=== PATIENT | male | born 1970 | race Caucasian/White ===

== ENCOUNTER → 2016-06-24 | Outpatient (CLI) | payer OTHER ==
--- NOTE | 2016-06-24 10:53 | RAD ---
Shunt Upton were orbits for MRI Indication: Pre-MRI screening. Time of exam 0948 hours. There is an opacity noted laterally projected over the mastoid air cells on the frontal view. This is lateral to the orbits and does not appear to be within the orbits. No radiopaque orbital foreign body is detected. Impression: No radiopaque orbital foreign body is detected.
--- NOTE | 2016-06-24 11:19 | RAD ---
PROCEDURE MR of the right shoulder HISTORY Right shoulder pain for 5 days. Jasper pop in anterior shoulder while lifting a heavy object. COMPARISON None TECHNIQUE Routine multiplanar sequences are obtained. FINDINGS Acromioclavicular joint is mildly degenerative. Diffuse thickening and increased signal within the rotator cuff compatible with tendinosis. Very small superficial undersurface tear of the supraspinatus tendon footprint, less than 20 percent deep and about 5 millimeters AP diameter. No large or full-thickness rotator cuff tear. Mild cystic change at the underlying tuberosity shelf. No significant subdeltoid bursal fluid. No advanced muscle atrophy. Tear of the posterosuperior labrum. No significant joint effusion. Biceps tendon thickening and increased signal proximally, compatible with tendinosis. No rupture or dislocation. No bone lesion or acute fracture. No acute soft tissue injury. IMPRESSION 1. Posterosuperior labrum tear. 2. Rotator cuff tendinosis. Very small and superficial undersurface tear of the supraspinatus tendon footprint. No full-thickness rotator cuff tear. 3. Biceps tendinosis. Electronically signed by: Kory Love MD (June 24, 2016 11:18:31)
== END | disposition home or self-care (01) ==
LOC: MRI 09:04
PROVIDERS: ATTEND Family Medicine
DX: S43.401A Unspecified sprain of right shoulder joint, initial encounter (principal); Z01.812 Encounter for preprocedural laboratory examination; X58.XXXA Exposure to other specified factors, initial encounter; Y93.89 Activity, other specified; Y92.89 Other specified places as the place of occurrence of the external cause; Y99.8 Other external cause status
CPT/HCPCS: 70250; 73221

== ENCOUNTER → 2016-09-10 | Outpatient (CLI) | payer OTHER ==
--- NOTE | 2016-09-10 15:18 | RAD ---
Left knee, 3 views, 09/10/2016: History: Knee pain and swelling No fracture or dislocation is identified. No significant arthritic change is seen. There is moderate soft tissue swelling particularly in the prepatellar region. No definite joint effusion is seen. IMPRESSION: No acute bony abnormality is detected.
== END | disposition home or self-care (01) ==
LOC: RAD 09:11
PROVIDERS: ATTEND Family Medicine
DX: M25.562 Pain in left knee (principal)
CPT/HCPCS: 73562

== ENCOUNTER → 2016-09-18 | Outpatient (CLI) | payer OTHER ==
--- NOTE | 2016-09-18 16:30 | RAD ---
MRI left knee without contrast dated 09/18/2016 3:24 PM Indication: Left knee pain and swelling for 2 weeks difficulty bending pain behind patella no known injury Comparison: No comparison is available. Technique: Routine multiplanar multisequence imaging performed. No contrast administered. Findings: Homogeneous signal throughout the visualized bone marrow. No marrow edema. Minimal tricompartmental hypertrophic change with mild thinning and surface irregularity of the articular cartilage. There is near full-thickness cartilage loss at the medial femoral trochlea/trochlear groove. Small joint effusion. No intra-articular loose body. No significant popliteal cyst. Anterior cruciate and posterior cruciate ligaments are intact. Medial and lateral collateral complexes are intact. Iliotibial band, popliteus tendon and pes anserine complex within normal limits. Quadriceps and patellar tendon are intact. Mild increased signal of the distal quadriceps tendon. There is patchy edema in the prepatellar and superficial infrapatellar soft tissues. No abnormality of the medial or lateral retinaculum. Both menisci are normal in morphology and signal. No articular surface tear or perimeniscal cyst. IMPRESSION: 1. No evidence of internal derangement. 2. 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 Near full-thickness cartilage loss at the anterior compartment. 3. Mild distal quadriceps tendinosis with nonspecific edema in the prepatellar and superficial infrapatellar soft tissues. 4. Small joint effusion. Electronically signed by: Kory Higuera MD (09/18/2016 4:27 PM) [email or web address]
== END | disposition home or self-care (01) ==
LOC: MRI 15:04
PROVIDERS: ATTEND Nurse Practitioner Gerontology
DX: S89.92XD Unspecified injury of left lower leg, subsequent encounter (principal); X58.XXXD Exposure to other specified factors, subsequent encounter; M25.461 Effusion, right knee; M17.12 Unilateral primary osteoarthritis, left knee
CPT/HCPCS: 73721

== ENCOUNTER → 2016-12-03 | Outpatient (CLI) | payer OTHER ==
--- NOTE | 2016-12-03 12:44 | RAD ---
MRI of the cervical spine without contrast 12/03/2016 CLINICAL HISTORY: Neck pain which radiates down the left arm. TECHNIQUE: Unenhanced T1-weighted, T2-weighted and inversion recovery sagittal and gradient echo and T2-weighted axial images of the cervical spine were obtained. FINDINGS: Minimal lateral curvature of the cervical spine is seen convex to the left. There is straightening of the normal cervical lordosis. Degenerative signal changes are seen involving all of the disks of the cervical spine. Degenerative signal changes are seen within the marrow surrounding these discs. No area of abnormal signal intensity is seen involving the cervical spinal cord. The C2-3 disc space is within normal limits. At the C3-4 and C4-5 disc spaces there are mild generalized disc bulges. Degenerative changes are seen involving the uncovertebral and facet joints bilaterally. A right paracentral focal disc protrusion is seen at C4-5 which measures 2 mm in AP diameter. These findings do not result in significant central spinal canal or neural foraminal stenosis. At the C5-6 disc space there is a mild to moderate generalized disc bulge. Superimposed on this disc bulge is a central/right paracentral disc osteophyte complex. This measures 3 mm in AP diameter. Additionally a superimposed left lateral focal disc herniation is seen. THis measures 4 mm in AP diameter Degenerative changes are seen involving the uncovertebral and facet joints bilaterally. These findings when combined efface the anterior and posterior CSF resulting in mild to moderate left greater than right central spinal canal stenosis with mild left greater than right cord impingement. Moderate bilateral neural foraminal stenosis is seen. At the C6-7 disc space there is a mild generalized disc bulge. Superimposed on this disc bulge is a right paracentral focal disc protrusion. This measures 3 mm in AP diameter. Degenerative changes are seen involving the uncovertebral and facet joints bilaterally. These findings do not result in significant central spinal canal or neural foraminal stenosis. At the C7-T1 disc space there is a minimal generalized disc bulge. Degenerative changes are seen involving the facet joints bilaterally. These findings do not result in significant central spinal canal or neural foraminal stenosis. IMPRESSION: Degenerative changes are seen throughout the cervical spine. These findings result in mild to moderate left greater than right central spinal canal stenosis with mild left greater than right cord impingement at C5-6. Moderate bilateral neural foraminal stenosis is seen at C5-6. Electronically signed by: Dudley Oliveros MD (12/03/2016 12:40 PM) [facility]
== END | disposition home or self-care (01) ==
LOC: MRI 08:51
PROVIDERS: ATTEND Family Medicine
DX: M48.02 Spinal stenosis, cervical region (principal); M47.892 Other spondylosis, cervical region; M79.602 Pain in left arm
CPT/HCPCS: 72141

== ENCOUNTER → 2016-12-30 | Outpatient (CLI) | payer OTHER ==
[~2016-12-30] MED LIST: HYDR-2762 PO; IBUP-1007 PO; METH-38 PO; MULT-404 PO; OXYC1TAB7 PO; SENN-37 PO
[2016-12-30 15:47] LABS: BASO # 0.1 x10^3/uL (0.0-0.2); BASO % 1 % (0-3); EOS % 1 % (0-3); HEMATOCRIT 44.4 % (39.0-53.0); LYMPH # 2.5 x10^3/uL (1.0-4.8); LYMPH % 31 % (24-48); MEAN CORPUSCULAR HEMOGLOBIN 29 pg (25-35); MEAN CORPUSCULAR HGB CONC 34 g/dL (31-37); MEAN CORPUSCULAR VOLUME 87 fL (79-100); MONO % 6 % (0-9); NEUT % 60 % (31-73); PLATELET COUNT 325 x10^3/uL (140-400); RED CELL DISTRIBUTION WIDTH 13.7 % (11.5-14.5); WHITE BLOOD COUNT 7.9 x10^3/uL (4.0-11.0)
== END | disposition home or self-care (01) ==
LOC: SURGPAT 15:28
PROVIDERS: ATTEND Neurological Surgery
DX: Z01.818 Encounter for other preprocedural examination (principal); M47.892 Other spondylosis, cervical region
CPT/HCPCS: 36415; 85025; 85610; 85730; 87641

== ENCOUNTER 2017-01-06 11:20 | Inpatient (IN) | payer OTHER ==
[~2017-01-06] VITALS: Ht 165.1 cm; Wt 91.9 kg
[2017-01-06] VITALS (9 sets, daily range): BP systolic 122–141; BP diastolic 70–95
[~2017-01-06 11:20] MED LIST changes: +BACITRACIN 50,000 UNIT in IV NORMAL SALINE 1000ML BAG 1,000 ML IRR ONE; +BUPIVAC MPF-EPI 0.5%-1:200000 30 ML VIAL. ONE; +GELATIN SPONGE SIZE 100. ONE; +HYDROmorphone 2 MG/ML VIAL IV PRN; +IV RINGERS,LACTATED 1000ML 1,000 ML IV SCH; +LIDOCAINE 1% PF 2 ML VIAL. ID PRN; -METH-38 PO; +MORPHINE SULFATE 4 MG/ML DISP.SYRIN. IV PRN; +ONDANSETRON PF 4 MG/2 ML VIAL. IV PRN; -OXYC1TAB7 PO; +PROCHLORPERAZINE 10 MG/2 ML VIAL. IV PRN; -SENN-37 PO; +THROMBIN TOPICAL 20,000 UNIT SPRAY.SYRN KIT TP ONE; +fentaNYL PF VIAL 100 MCG/2 ML VIAL IV PRN
[2017-01-06] MEDS ORDERED: fentaNYL PF VIAL 100 MCG/2 ML VIAL ONE (11:31)
[2017-01-06] MEDS ORDERED: DESFLURANE > 120 MINUTES IH ONE (11:31)
[2017-01-06] MEDS ORDERED: REMIFENTANIL 2 MG VIAL. IV ONE (11:31)
[2017-01-06] MEDS ORDERED: MIDAZOLAM HCL/PF 2 MG/2 ML VIAL. ONE (11:31)
[2017-01-06] MEDS ORDERED: GLYCOPYRROLATE 1 MG/5 ML VIAL. ONE (11:31)
[2017-01-06] MEDS ORDERED: ROCURONIUM 50 MG/5 ML VIAL. ONE (11:32)
[2017-01-06] MEDS ORDERED: NEOSTIGMINE METHYLSULFATE 5 MG/5 ML SYRINGE. ONE (11:32)
[2017-01-06] MEDS ORDERED: 0.9 % SODIUM CHLORIDE 50 ML VIAL. IJ ONE (11:32)
[2017-01-06] MEDS ORDERED: LIDOCAINE 2% PF Vial for OR 5 ML VIAL. ONE (11:32)
[2017-01-06] MEDS ORDERED: ONDANSETRON PF 4 MG/2 ML VIAL. ONE (11:32)
[2017-01-06] MEDS ORDERED: DEXAMETHASONE SOD PHOS 20 MG/5 ML VIAL. ONE (11:32)
[2017-01-06] MEDS ORDERED: PROPOFOL 20 ML IV ONE (11:32)
[2017-01-06] MEDS ORDERED: PROPOFOL 100 ML IV ONE (11:33)
[2017-01-06] MEDS ORDERED: PHENYLEPHRINE 10 MG/ML VIAL. ONE (12:56)
--- NOTE | 2017-01-06 14:27 | PDOC ---
BRIEF OPERATIVE NOTE Date: Jan 06, 2017 Pre-Op Diagnosis cervical stenosis, cervical disk herniation, cervical radiculopathy, weakness Post-Op Diagnosis same Procedure Performed ACDF C5-[address] Scan Tech none Anesthesia Type: General Blood Loss 10mL Specimens Obtained disk Findings prominent stenosis due to disk herniation C5-6, neuromonitoring remained at least baseline throughout the procedure Complications none apparent BELKYS BELL MD Jan 06, 2017 14:27
[2017-01-06] MEDS ORDERED: ONDANSETRON PF 4 MG/2 ML VIAL. IV PRN (14:30)
[2017-01-06] MEDS ORDERED: diphenhydrAMINE HCL 25 MG CAPSULE PO PRN (14:30)
[2017-01-06] MEDS ORDERED: ACETAMINOPHEN 325 MG TABLET. PO PRN (14:30)
[2017-01-06] MEDS ORDERED: ZOLPIDEM 5 MG TABLET. PO PRN (14:30)
[2017-01-06] MEDS ORDERED: MAGNESIUM HYDROXIDE 2,400 MG/30 ML ORAL.SUSP. PO PRN (14:30)
[2017-01-06] MEDS ORDERED: diphenhydrAMINE 50 MG/ML VIAL IV PRN (14:30)
[2017-01-06] MEDS ORDERED: oxyCODONE/APAP 5/325 1 TAB TABLET PO PRN (14:30)
[2017-01-06] MEDS ORDERED: 0.9 % SODIUM CHLORIDE 10 ML DISP.SYRIN. IV PRN (14:30)
[2017-01-06] MEDS ORDERED: NALOXONE 0.4 MG/ML VIAL. IV PRN (14:30)
[2017-01-06] MEDS ORDERED: CALCIUM CARBONATE 500 MG TAB.CHEW PO PRN (14:30)
[2017-01-06] MEDS ORDERED: MAG HYDROX/ALUMINUM HYD/SIMETH 30 ML ORAL.SUSP PO PRN (14:30)
[2017-01-06] MEDS: fentaNYL PF VIAL 100 MCG/2 ML VIAL IV PRN ×2 (15:00→15:10)
[2017-01-06] MEDS: CALCIUM CARB/VIT D3 500/200 TABLET. PO SCH (18:23)
[2017-01-06] MEDS: FERROUS SULFATE 325 MG TABLET. PO SCH (18:23)
[2017-01-06] MEDS: oxyCODONE/APAP 5/325 1 TAB TABLET PO PRN (18:24)
[2017-01-06] MEDS: DOCUSATE SODIUM 100 MG CAPSULE. PO SCH (20:55)
[2017-01-06] MEDS: SENNOSIDES/DOCUSATE 8.6/50MG TABLET. PO SCH (20:55)
[2017-01-06] MEDS: METHOCARBAMOL 750 MG TABLET PO SCH (20:55)
[2017-01-07 03:52] VITALS: BP 128/88
[2017-01-07 06:45] VITALS: BP 118/79
[2017-01-07] MEDS: CALCIUM CARB/VIT D3 500/200 TABLET. PO SCH (08:27)
[2017-01-07] MEDS: FERROUS SULFATE 325 MG TABLET. PO SCH (08:28)
[2017-01-07] MEDS: DOCUSATE SODIUM 100 MG CAPSULE. PO SCH (08:28)
[2017-01-07] MEDS: oxyCODONE/APAP 5/325 1 TAB TABLET PO PRN (08:28)
[2017-01-07] MEDS: SENNOSIDES/DOCUSATE 8.6/50MG TABLET. PO SCH (08:28)
[2017-01-07] MEDS: METHOCARBAMOL 750 MG TABLET PO SCH (08:28)
--- NOTE | 2017-01-07 08:30 | PDOC ---
SUBJECTIVE Subjective Reports essential resolution of left bicep weakness and arm pain. Eating/ swallowing without problems. Denies acute complaints otherwise this AM. OBJECTIVE Vital Signs Vital Signs Date Time Temp Pulse Resp B/P (MAP) Pulse Ox O2 Delivery O2 Flow Rate FiO2 01/07/17 06:45 97.8 63 18 118/79 (92) 94 Room Air 97.8 01/07/17 03:52 98.1 79 17 128/88 (101) 94 Room Air 98.1 01/06/17 23:40 Room Air 01/06/17 22:42 20 97 Room Air 01/06/17 22:33 97.9 97 17 125/91 (102) 97 Room Air 97.9 01/06/17 19:50 Room Air 01/06/17 19:25 97.7 99 17 128/87 (101) 91 Room Air 97.7 01/06/17 19:25 20 Room Air 01/06/17 18:15 91 141/83 (102) 01/06/17 17:15 57 18 122/73 (89) 92 Room Air 01/06/17 16:46 79 18 133/87 (102) 95 Nasal Cannula 2.0 01/06/17 16:15 86 132/89 (103) 95 01/06/17 16:00 91 130/90 (103) 95 01/06/17 15:45 Nasal Cannula 01/06/17 15:45 78 135/91 (106) 01/06/17 15:40 97 Nasal Cannula 01/06/17 15:30 78 132/95 (107) 01/06/17 15:30 2.0 01/06/17 15:25 97.6 74 18 147/91 95 Nasal Cannula 2 97.6 01/06/17 15:10 82 16 140/86 93 Nasal Cannula 2 01/06/17 15:10 20 91 Room Air 01/06/17 15:00 18 92 Room Air 01/06/17 14:55 84 18 134/74 92 Room Air 01/06/17 14:40 89 18 137/82 93 Room Air 01/06/17 14:25 97.6 103 16 143/89 96 Simple Mask 10 97.6 01/06/17 14:25 Mask 10 01/06/17 11:56 98.0 59 16 131/87 98 Room Air 98.0 I & O Intake and Output 01/07/17 07:00 Intake Total 4147 ml Output Total 360 ml Balance 3787 ml Intake Oral 2150 ml IV Total 1997 ml Output Urine Total 350 ml Estimated Blood Loss 10 ml # Voids 5 PHYSICAL EXAM Physical Exam AAOx4, NAD, OLMEDO now 5/5 left bicep, sensation intact LT, dressing c/d/i with mild ss stain, neck flat, voice with good phonation and fluent speech ASSESSMENT/PLAN Assessment/Plan POD 1 ACDF 5-6 -recovering well thus far with essential resolution of pre-operative symptoms -discussed importance of adherence to standard post-op restrictions despite feeling much better/stronger -d/c home today with follow-up in two weeks Problems: BELKYS BELL MD Jan 07, 2017 08:30
[2017-01-07] MEDS ORDERED: MULTIVITAMIN with MINERAL TABLET. PO SCH ×2 (09:00)
[2017-01-07] MEDS ORDERED: METH-38 PO (09:24)
[2017-01-07] MEDS ORDERED: SENN-37 PO (09:25)
[2017-01-07] MEDS ORDERED: OXYC1TAB7 PO (09:25)
--- NOTE | 2017-01-07 10:11 | OP ---
DATE OF SURGERY: 01/06/2017 SURGEON: Neno [place] MD. MACHINE STACKER: None. PREOPERATIVE DIAGNOSES: Cervical disk herniation with cervical stenosis. Cervical radiculopathy and weakness. POSTOPERATIVE DIAGNOSES: Cervical disk herniation with cervical stenosis. Cervical radiculopathy and weakness. PROCEDURE: Anterior cervical discectomy and fusion of cervical 5-6 with Amendia anterior instrumentation and structural allograft. Use of neuromonitoring. ANESTHESIA: General. COMPLICATIONS: None intraprocedurally. INDICATIONS FOR THE PROCEDURE: The patient is a 46-year-old gentleman who has developed left upper extremity pain in a C6 distribution and also has developed significant left bicep weakness. Imaging revealed a prominent disk herniation, predominantly to the left at cervical 5-6, and based on these things, it was felt that decompression would be beneficial. Please refer to the patient's chart for additional detail. DESCRIPTION OF PROCEDURE: After informed consent was obtained, the patient was brought into the operating room. He was placed under general anesthesia. Baseline potentials were obtained. He was placed in the supine position with the head in very slight extension with a shoulder bump under the shoulders. Neuromonitoring was instituted and baseline potentials were obtained. An appropriate incision location was localized with fluoroscopy. Anterior neck was prepped and draped in usual sterile fashion. A horizontal incision centered over the region of cervical 5-6 was made with a 10 blade scalpel. Blunt dissection techniques were utilized to dissect the underlying soft tissues. The platysma was sharply divided in the plane of the incision. A plane was then bluntly developed between the carotid sheath laterally and the trachea and the esophagus medially to approach the anterior cervical spine. The prevertebral fascia was taken down with a Kittner. The longus colli muscles were gently cauterized to provide protection of the adjacent structures from the retraction system. Level was verified with fluoroscopy and retractors were gently instituted. Distraction pins were instituted in the body of cervical 5 and in the body of cervical 6 and some distraction was applied. The annulus was incised with an 11 blade scalpel, and discectomy was performed at cervical 5-6 with a pituitary rongeur as well as a Kerrison rongeur. A curette and an endplate scraper was utilized to remove additional disk material. Anterior inferior osteophyte of cervical 5 was taken down with a Kerrison rongeur. The posterior longitudinal ligament was taken down with a Kerrison rongeur, as well. Some additional disk material was gently teased posteriorly with a blunt nerve hook and removed with a micro pituitary rongeur. Upon completion of discectomy and decompression, the thecal sac was noted to be very well decompressed. This was verified with direct visualization as well as gentle palpation with a small blunt nerve hook. Upon completion of decompression and discectomy, a 7 mm structural allograft was instituted as a fusion substrate. Once this was in place, the distraction was removed, and the distraction pins were removed. A 14-mm Amendia anterior cervical plate was instituted, and screws were instituted at cervical 5 and cervical 6 and secured according to the livestock farmers specification. Upon completion of this, the fusion construct was verified to be in good and adequate position with fluoroscopy. Pristine hemostasis was achieved with FloSeal, generous irrigation and some minimal use of bipolar electrocautery. The wound was generously irrigated with antibiotic irrigation prior to the final closure. The platysma was then reapproximated with 3-0 Vicryl in a simple interrupted fashion. Subcutaneous tissues were reapproximated with 3-0 Vicryl in an interrupted inverted fashion. Skin was reapproximated with 4-0 Vicryl in a running subcuticular fashion. Mastisol and Steri-Strips were applied, and the wound was dressed with Telfa and Tegaderm. At the end of procedure, all needle and sponge counts were correct x 2. The patient was extubated in the operating room and taken to recovery in stable condition. There were no intraprocedural complications apparent. Neuromonitoring remained at least baseline throughout the entire procedure. NENO BELL MD DR: ANTHONY/wilson JOB#: [id number] / [id number] CULLEN
[2017-01-07 10:30] VITALS: BP 142/88
--- NOTE | 2017-01-10 14:55 | PATHOLOGY ---
PATHOLOGY REPORT * * * * * * * * FINAL DIAGNOSIS: Segments of fibrocartilaginous tissue and bone, cervical disc: - Degenerative changes of fibrocartilaginous tissue. COMMENT: There is no evidence of an acute inflammatory process or malignancy. (JPM:db; 01/10/2017) REPORT ELECTRONICALLY SIGNED BY: Jasbir Payne M.D. DATE/TIME: 01/10/2017 14:54 * * * * * * * * GROSS PATHOLOGY: Received in formalin labeled "Zoe Alejandra, cervical disc," are multiple segments of joseph, rubbery and gritty tissue measuring 4.6 x 1.0 x 0.4 cm in aggregate dimensions with admixed calcified tissue. The tissue is submitted representatively in cassette A1. (SDY; 01/08/2017) INITIAL CPT CODE(S): A; 87251 Professional services [place] [address] Technical services performed by [facility] at [address] [place] [address], [facility] [address], [place] [address]. SPECIMEN(S) RECEIVED: A.Cervical disc CLINICAL HISTORY: Neck pain PATIENT: ZOE ALEJANDRA /AGE: 607/30/1970 (Age: 46) PATIENT #: [id number] ALT CASE #: SPECIMEN COLLECTION DATE: 01/06/2017 SPECIMEN RECEIVED DATE: 01/07/2017 [facility] - [address] [place] [address] - PHONE: [phone] * * * END OF REPORT * * *
== END 2017-01-07 10:20 | disposition home or self-care (01) | DRG 473 ==
LOC: SURG 11:20 → 4 SOUTHEST 14:50
PROVIDERS: ADMIT Neurological Surgery; ATTEND Neurological Surgery
PROC: 0RB30ZZ Excision of Cervical Vertebral Disc, Open Approach (ICD-10-PCS; 2017-01-06)
PROC: 4A11X4G Monitoring of Peripheral Nervous Electrical Activity, Intraoperative, External Approach (ICD-10-PCS; 2017-01-06)
PROC: 0RG10K0 Fusion of Cervical Vertebral Joint with Nonautologous Tissue Substitute, Anterior Approach, Anterior Column, Open Approach (ICD-10-PCS; principal; 2017-01-06 12:30)
DX: M50.122 Cervical disc disorder at C5-C6 level with radiculopathy (principal); M48.02 Spinal stenosis, cervical region; E78.5 Hyperlipidemia, unspecified; M25.78 Osteophyte, vertebrae
CPT/HCPCS: 76000; 88304; C1713; J0690; J1100; J2250; J2405; J2704; J2710; J3010; J3490; J7030; J7120; 97530; J2001

== ENCOUNTER → 2017-02-11 | Outpatient (CLI) | payer OTHER ==
[~2017-02-11] MED LIST changes: -BACITRACIN 50,000 UNIT in IV NORMAL SALINE 1000ML BAG 1,000 ML IRR ONE; -BUPIVAC MPF-EPI 0.5%-1:200000 30 ML VIAL. ONE; -GELATIN SPONGE SIZE 100. ONE; -HYDROmorphone 2 MG/ML VIAL IV PRN; -IV RINGERS,LACTATED 1000ML 1,000 ML IV SCH; -LIDOCAINE 1% PF 2 ML VIAL. ID PRN; +METH-38 PO; -MORPHINE SULFATE 4 MG/ML DISP.SYRIN. IV PRN; -ONDANSETRON PF 4 MG/2 ML VIAL. IV PRN; +OXYC1TAB7 PO; -PROCHLORPERAZINE 10 MG/2 ML VIAL. IV PRN; +SENN-37 PO; -THROMBIN TOPICAL 20,000 UNIT SPRAY.SYRN KIT TP ONE; -fentaNYL PF VIAL 100 MCG/2 ML VIAL IV PRN
--- NOTE | 2017-02-11 12:11 | RAD ---
Cervical spine, 2 views, 02/11/2017: History: Postop evaluation There has been an anterior spinal fusion with an anterior fixation plate present at C5-6 attached to those 2 vertebral bodies via 2 screws at each level. A radiopaque disc spacer is present at the C5-6 level. No fracture or dislocation is identified. There is mild to moderate disc space narrowing and marginal spurring at C4-5. No prevertebral soft tissue swelling is seen. IMPRESSION: 1. Anterior spinal fusion and instrumentation at C5-6. 2. Mild degenerative disc disease at C4-5.
== END | disposition home or self-care (01) ==
LOC: RAD 11:01
PROVIDERS: ATTEND Neurological Surgery
DX: M50.30 Other cervical disc degeneration, unspecified cervical region (principal); Z98.1 Arthrodesis status; Z98.890 Other specified postprocedural states
CPT/HCPCS: 72040

== ENCOUNTER → 2017-04-07 | Outpatient (CLI) | payer OTHER | END | disposition home or self-care (01) | LOC: KCIC CT 12:12 | DX: J32.4 Chronic pansinusitis (principal) | CPT/HCPCS: 70486 ==